=== PATIENT | female | born 1975 | race Caucasian/White ===

== ENCOUNTER → 2019-07-17 | Outpatient (CLI) | payer BC ==
[2019-07-17 10:39] LABS: ALBUMIN 3.7 g/dL (3.5-5.0); POTASSIUM 4.2 mmol/L (3.5-5.1)
[2019-07-17 10:41] LABS: CALCIUM 9.3 mg/dL (8.3-10.5)
[2019-07-17 10:42] LABS: TOTAL PROTEIN 6.5 g/dL (6.4-8.3)
[2019-07-17 10:44] LABS: TOTAL BILIRUBIN 0.7 mg/dL (0.2-1.2)
[2019-07-17 11:43] LABS: BASO # 0.1 (0.02-0.10); EOS # 0.2 (0.04-0.40); EOS % 2.8 % (1.0-5.0); HEMATOCRIT 43.6 % (37.0-47.0); HEMOGLOBIN 14.5 g/dL (12.5-16.0); LYMPH# 1.9 (1.50-4.00); MEAN CELL VOLUME 89 fl (78-100); MEAN CORPUSCULAR HEMOGLOBIN 30 pg (27-31); MEAN CORPUSCULAR HGB CONC 33 g/dL (33-37); MEAN PLATELET VOLUME 10.2 fl (7.4-10.4); MONO # 0.4 (0.20-0.80); PLATELET COUNT 273 K/mm3 (130-400); RED BLOOD COUNT 4.88 M/mm3 (4.10-5.30); RED CELL DISTRIBUTION WIDTH 13.4 % (11.5-14.5); WHITE BLOOD COUNT 5.4 K/mm3 (4.8-10.8)
== END ==
LOC: RAD 10:08
PROVIDERS: Nurse Practitioner Family
DX: E78.00 Pure hypercholesterolemia, unspecified (principal); R51 Headache

== ENCOUNTER → 2019-08-21 | Outpatient (CLI) | payer OTHER, BC | LOC: RAD 10:03 | DX: M47.814 Spondylosis without myelopathy or radiculopathy, thoracic region (principal); V89.2XXA Person injured in unspecified motor-vehicle accident, traffic, initial encounter ==

== ENCOUNTER → 2019-08-21 | Outpatient (CLI) | payer BC ==
[2019-08-21 10:27] LABS: EOS # 0.1 (0.04-0.40); EOS % 2.1 % (1.0-5.0); HEMATOCRIT 43.2 % (37.0-47.0); HEMOGLOBIN 14.5 g/dL (12.5-16.0); LYMPH# 1.9 (1.50-4.00); MEAN CELL VOLUME 89 fl (78-100); MEAN CORPUSCULAR HEMOGLOBIN 30 pg (27-31); MEAN CORPUSCULAR HGB CONC 34 g/dL (33-37); MEAN PLATELET VOLUME 10.3 fl (7.4-10.4); MONO # 0.4 (0.20-0.80); NEU # 2.7 (1.40-6.50); PLATELET COUNT 236 K/mm3 (130-400); RED BLOOD COUNT 4.83 M/mm3 (4.10-5.30); RED CELL DISTRIBUTION WIDTH 13.3 % (11.5-14.5); WHITE BLOOD COUNT 5.2 K/mm3 (4.8-10.8)
[2019-08-21 10:37] LABS: ALBUMIN 3.6 g/dL (3.5-5.0)
[2019-08-21 10:38] LABS: CALCIUM 8.7 mg/dL (8.3-10.5)
[2019-08-21 10:39] LABS: TOTAL PROTEIN 6.3 g/dL (6.4-8.3)
[2019-08-21 10:41] LABS: TOTAL BILIRUBIN 0.6 mg/dL (0.2-1.2)
[2019-08-21 23:29] LABS: HEPATITIS C ANTIBODY Negative (Negative)
== END ==
LOC: LAB 09:58
PROVIDERS: Family Medicine
DX: Z00.00 Encounter for general adult medical examination without abnormal findings (principal); E78.5 Hyperlipidemia, unspecified; Z72.51 High risk heterosexual behavior

== ENCOUNTER → 2019-08-27 | Outpatient (CLI) | payer BC | LOC: RAD 12:00 | DX: S83.242A Other tear of medial meniscus, current injury, left knee, initial encounter (principal); M25.462 Effusion, left knee; M22.42 Chondromalacia patellae, left knee ==

== ENCOUNTER → 2019-09-01 | Outpatient (CLI) | payer BC | LOC: MAMMO 14:28 | DX: Z12.31 Encounter for screening mammogram for malignant neoplasm of breast (principal) ==

== ENCOUNTER → 2019-11-30 | Outpatient (CLI) | payer SELFPAY | LOC: PT 08:52 | DX: S83.242A Other tear of medial meniscus, current injury, left knee, initial encounter (principal); M17.12 Unilateral primary osteoarthritis, left knee ==

== ENCOUNTER 2020-01-13 15:15 | Outpatient (RCR) | payer OTHER | END 2020-03-06 | disposition home or self-care (01) | LOC: PT | DX: Z47.1 Aftercare following joint replacement surgery (principal); Z96.652 Presence of left artificial knee joint ==

== ENCOUNTER → 2020-07-25 | Outpatient (CLI) | payer BC ==
[2020-07-25 17:02] LABS: BASO # 0.1 (0.02-0.10); EOS # 0.1 (0.04-0.40); EOS % 1.6 % (1.0-5.0); HEMATOCRIT 45.7 % (37.0-47.0); HEMOGLOBIN 15.1 g/dL (12.5-16.0); LYMPH# 2.8 (1.50-4.00); MEAN CELL VOLUME 91 fl (78-100); MEAN CORPUSCULAR HEMOGLOBIN 30 pg (27-31); MEAN CORPUSCULAR HGB CONC 33 g/dL (33-37); MEAN PLATELET VOLUME 10.5 fl (7.4-10.4); MONO # 0.7 (0.20-0.80); NEU # 4.6 (1.40-6.50); PLATELET COUNT 262 K/mm3 (130-400); RED BLOOD COUNT 5.02 M/mm3 (4.10-5.30); RED CELL DISTRIBUTION WIDTH 13.8 % (11.5-14.5); WHITE BLOOD COUNT 8.3 K/mm3 (4.8-10.8)
[2020-07-25 17:03] LABS: ALBUMIN 3.9 g/dL (3.5-5.0)
[2020-07-25 17:04] LABS: CALCIUM 8.6 mg/dL (8.3-10.5)
[2020-07-25 17:06] LABS: TOTAL PROTEIN 6.9 g/dL (6.4-8.3)
[2020-07-25 17:08] LABS: TOTAL BILIRUBIN 0.7 mg/dL (0.2-1.2)
== END ==
LOC: LAB 16:34
PROVIDERS: Family Medicine
DX: Z00.00 Encounter for general adult medical examination without abnormal findings (principal); E78.5 Hyperlipidemia, unspecified

== ENCOUNTER → 2021-01-31 | Outpatient (CLI) | payer OTHER | LOC: RAD 12:00 | DX: K76.0 Fatty (change of) liver, not elsewhere classified (principal) ==

== ENCOUNTER → 2021-01-31 | Outpatient (CLI) | payer OTHER ==
[2021-01-31 13:03] LABS: POTASSIUM 4.2 mmol/L (3.5-5.1)
[2021-01-31 13:04] LABS: CALCIUM 9.3 mg/dL (8.3-10.5)
[2021-01-31 13:05] LABS: TOTAL PROTEIN 6.8 g/dL (6.4-8.3)
[2021-01-31 13:07] LABS: TOTAL BILIRUBIN 1.4 mg/dL (0.2-1.2)
[2021-01-31 22:59] LABS: HEPATITIS C ANTIBODY Negative (Negative)
== END ==
LOC: LAB 12:33
PROVIDERS: Internal Medicine
DX: R89.0 Abnormal level of enzymes in specimens from other organs, systems and tissues (principal)